=== PATIENT | female | born 1955 | race Two or more races ===

== ENCOUNTER 2017-12-31 13:02 | Outpatient (CLI) | payer OTHER | END 2017-12-31 14:00 | disposition home or self-care (01) | LOC: NUCLEAR 13:02 | DX: M81.0 Age-related osteoporosis without current pathological fracture (principal); N60.12 Diffuse cystic mastopathy of left breast; N60.11 Diffuse cystic mastopathy of right breast; R92.1 Mammographic calcification found on diagnostic imaging of breast; D25.2 Subserosal leiomyoma of uterus; N84.0 Polyp of corpus uteri; N95.2 Postmenopausal atrophic vaginitis; E66.3 Overweight; N76.2 Acute vulvitis; N75.0 Cyst of Bartholin's gland ==